=== PATIENT | female | born 1970 | race Caucasian/White ===

== ENCOUNTER 2017-09-03 17:30 | Emergency (ER) | payer BC ==
[~2017-09-03] VITALS: Ht 167.6 cm; Wt 63.0 kg
[2017-09-03 17:30] VITALS: BP_SYST 135
[2017-09-03] MEDS ORDERED: NACL 0.9% 1,000 ML IV ONE (18:00)
[2017-09-03] MEDS ORDERED: LORazepam 2 MG/ML VIAL (FOR ER USE) IVP ONE (18:00)
[2017-09-03 18:11] LABS: BASOPHILS # (AUTO) 0.1 K/uL (0.0-0.2); BASOPHILS % (AUTO) 1.2 % (0.0-2.0); EOSINOPHILS # (AUTO) 0.1 K/uL (0.0-0.4); EOSINOPHILS % (AUTO) 1.2 % (0.0-4.0); HEMATOCRIT 38.4 % (36-48); HEMOGLOBIN 12.9 g/dL (12.0-16.0); LYMPHOCYTES # (AUTO) 0.8 K/uL (1.0-5.5); LYMPHOCYTES % (AUTO) 11.6 % (20.5-51.5); MEAN CORPUSCULAR HEMOGLOBIN 30 pg (27-31); MEAN CORPUSCULAR HGB CONC 34 % (32-36); MEAN CORPUSCULAR VOLUME 88 fL (79.0-98.0); MONOCYTES # (AUTO) 0.4 K/uL (0.0-1.0); MONOCYTES % (AUTO) 6.3 % (1.7-9.3); NEUTROPHILS # (AUTO) 5.1 K/uL (1.8-7.7); NEUTROPHILS % (AUTO) 79.7 % (40.0-70.0); PLATELET COUNT (AUTO) 156 K/uL (130-430); RED BLOOD CELL COUNT(AUTO) 4.38 MIL/uL (4.2-6.2); WHITE BLOOD COUNT (AUTO) 6.5 K/uL (4.8-10.8)
[2017-09-03 18:28] LABS: CALCIUM 9.3 mg/dL (8.4-11.0); CREATININE 0.62 mg/dL (0.55-1.30); POTASSIUM 3.9 mmol/L (3.5-5.1)
[2017-09-03] MEDS ORDERED: MORPHINE 2 MG/ML INJ. SYRINGE IVP ONE (18:30)
[2017-09-03 18:33] LABS: ALBUMIN 4.1 g/dL (3.4-4.8); TOTAL BILIRUBIN 0.4 mg/dL (0.0-1.0)
[2017-09-03 18:55] VITALS: BP_SYST 128
== END 2017-09-03 18:55 | disposition home or self-care (01) ==
LOC: SED 17:30
DX: F41.9 Anxiety disorder, unspecified (principal); R53.1 Weakness; R00.2 Palpitations
CPT/HCPCS: 36415; 80053; 81025; 85025; 93005; 96360; 99285; J2060; J7030